=== PATIENT | male | born 1995 | race African-American/Black ===

== ENCOUNTER 2017-08-10 23:39 | Emergency (ER) | payer OTHER ==
[~2017-08-10] VITALS: Ht 167.6 cm; Wt 100.9 kg
[2017-08-11] MEDS ORDERED: BUPIVACAINE PF 0.75% 10 ML VIAL IJ ONE
[2017-08-11] MEDS ORDERED: LIDOCAINE 2% 20 ML VIAL. IJ ONE ×2
[2017-08-11] MEDS ORDERED: BUPIVACAINE MPF 0.25% 10 ML VIAL. IJ ONE
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
[2017-08-11 00:06] VITALS: BP 162/83
[2017-08-11] MEDS ORDERED: BUPIVACAINE MPF 0.5% 30 ML VIAL. SQ ONE (00:30)
[2017-08-11] MEDS ORDERED: TETANUS AND DIPHTHERIA TOX/PF 0.5 ML VIAL. VAX IM ONE (00:30)
== END 2017-08-11 00:11 | disposition home or self-care (01) ==
LOC: ER 23:39 → EEVIPCON 23:39 → ER 08-11 00:11
DX: S01.111A Laceration without foreign body of right eyelid and periocular area, initial encounter (principal); W22.8XXA Striking against or struck by other objects, initial encounter; Y93.89 Activity, other specified; Y99.8 Other external cause status; Y92.89 Other specified places as the place of occurrence of the external cause
CPT/HCPCS: 12011; 90471; 90714; 99283; J3490; J2001